=== PATIENT | female | born 2005 | race Caucasian/White ===

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

== ENCOUNTER 2023-12-16 19:30 | Emergency (ER) | payer OTHER, BC ==
[~2023-12-16] VITALS: Ht 167.6 cm; Wt 95.2 kg
[2023-12-16 19:49] VITALS: BP 139/101
== END 2023-12-16 20:22 | disposition home or self-care (01) ==
LOC: ER 19:30
DX: S20.212A Contusion of left front wall of thorax, initial encounter (principal); S40.012A Contusion of left shoulder, initial encounter; V69.9XXA Occupant (driver) (passenger) of heavy transport vehicle injured in unspecified traffic accident, initial encounter
CPT/HCPCS: 99283